=== PATIENT | female | born 1965 | race Caucasian/White ===

== ENCOUNTER 2017-01-07 07:16 | Day surgery (SDC) | payer OTHER ==
[2016-12-16 15:53] VITALS: BMI 35.5
--- NOTE | 2017-01-06 20:25 | PREOPHP ---
DATE OF ADMISSION: 01/07/2017 HISTORY OF PRESENT ILLNESS: A 51-year-old patient who is going to be admitted for diagnostic arthro scopy, right knee, partial meniscectomy, total synovectomy, plica band release, and application of J ones dressing. This patient has been experiencing right knee pain for quite a while. Conservative treatment result ed in limited benefit to the patient and the patient has requested surgical intervention. PAST MEDICAL HISTORY: Asthma, COPD, high blood pressure. SOCIAL HISTORY: Nonsmoker, nondrinker. FAMILY HISTORY: Positive for cancer and aneurysm. PAST SURGICAL HISTORY: Knee surgery. ALLERGIES: PATIENT GIVES A HISTORY OF ALLERGY TO: 1. TORADOL. 2. LATEX. 3. MORPHINE. 4. TRAMADOL. MEDICATIONS: 1. Gabapentin. 2. Fentanyl patch. 3. Dilaudid. 4. Keppra. 5. Metoprolol. 6. Prilosec. 7. Cymbalta. 8. Abilify. 9. Restoril. 10. 11. Clonidine. 12. Sulindac. PHYSICAL EXAMINATION: SKIN: Within normal limits. EARS, NOSE, THROAT: PERRLA. HEAD AND NECK: Normocephalic. Trachea midline. Bilateral symmetrical carotid pulses. No mass, no bruit, no lymphadenopathy. CARDIOVASCULAR: Normal sinus rhythm. S1, S2 normal. No murmur. No JVD. No peripheral edema. LUNGS: Clear. ABDOMEN: Protuberant. No organomegaly. No mass. Bowel sounds present. GENITOURINARY: Not done, not pertinent to this admission. RECTAL: Not done, not pertinent to this admission. MUSCULOSKELETAL: Height of 5 feet 2 inches, weighing 196 pounds. Head and neck unremarkable. Uppe r extremities to be normal with normal neurovascular examination. Spine range of motion is about 80 % with tenderness over the facet joints. There is slight tenderness over the greater trochanter iliotibial band. Both knees show range of mo tion 0 to 100 degrees. Marked tenderness over the medial joint line, patellofemoral and tibiofemora l joint line. Pawan test and Apley compression test could not be assessed. Left leg is hyperref lexive. Lower extremity there is slight tenderness over the posterior tibial and peroneal tendons a nd both ankles. MRI of the right knee indicates chondral loss, posteromedial femoral condyle, subchondral marrow adrian ma, no fascial thickness chondral loss. 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 Frayin g of the trochlea, small 3 mm focus of chondral diminution, lateral tibial plateau, mild mucoid dege neration of the posterior cruciate ligament, small cyst, small focal synovitis, small joint ef fusion, mild synovitis. DIAGNOSES: Right knee internal derangement, right knee plica syndrome, right knee synovitis, possib le torn meniscus. TREATMENT PLAN: Alternatives, risks and benefits discussed. The patient understands possibility of complications such as infection, bleeding, nerve damage, vascular damage, possibility of deep venou s thrombosis, pulmonary embolism, hypersensitivity to medication and even . Cullen result may n ot be obtained depending on nature of findings and also unknown factors. Formal H and P is supposed to have been done by primary care physician. Dictated By: PADMINI BRYANT/VERÓNICA Conf#: [id number] DID#: [id number]
[2017-01-07] VITALS (14 sets, daily range): BP systolic 112–177; BP diastolic 62–91; PULSE 60–113; RESP 13–29; Ht 157.5 cm; Wt 94.4 kg
[~2017-01-07] VITALS: Ht 157.5 cm; Wt 94.4 kg
[~2017-01-07 07:16] MED LIST: CEFAZOLIN 2 GM/50 ML (PMX) 50 ML IVPB ONE; SEVOFLURANE 15 MIN ONE
[2017-01-07] MEDS ORDERED: PROPOFOL 20 ML ONE ×2 (08:21→09:57)
[2017-01-07] MEDS ORDERED: FENTAnyl 50 MCG/ML VIAL ONE ×2 (08:21→11:01)
[2017-01-07] MEDS ORDERED: LIDOCAINE 100 MG SYRINGE ONE (08:21)
[2017-01-07] MEDS ORDERED: MIDAZOLAM 1 MG/ML 2 ML INJ ONE (08:21)
[2017-01-07] MEDS ORDERED: DEXAMETHASONE 4 MG/ML 1 ML INJ ONE (08:24)
[2017-01-07] MEDS ORDERED: ONDANSETRON 4 MG INJ ONE (08:24)
[2017-01-07] MEDS ORDERED: CLON-379 PO (08:39)
[2017-01-07] MEDS ORDERED: MONT10TA21 PO (08:39)
[2017-01-07] MEDS ORDERED: ALBU18HF INHALATION (08:39)
[2017-01-07] MEDS ORDERED: ARIP15TA2 PO (08:39)
[2017-01-07] MEDS ORDERED: DULO60CA6 PO (08:39)
[2017-01-07] MEDS ORDERED: ADV25050 INHALATION (08:39)
[2017-01-07] MEDS ORDERED: LEVE500S9 PO (08:39)
[2017-01-07] MEDS ORDERED: METO-448 PO (08:39)
[2017-01-07] MEDS ORDERED: GABA400C14 PO (08:39)
[2017-01-07] MEDS ORDERED: BUDE6.9H INHALATION (08:39)
[2017-01-07] MEDS ORDERED: OMEP40CA6 PO (08:39)
[2017-01-07] MEDS ORDERED: EPINEPHrine 1 MG/ML 30 ML INJ ONE (08:42)
[2017-01-07] MEDS ORDERED: SODIUM CL BACTERIOSTATIC 30 ML INJ ONE (08:42)
[2017-01-07] MEDS ORDERED: morphine SULFATE/PF (10 MG/10 ML) INJ ONE (08:42)
[2017-01-07 09:02] LABS: ADD SCAN DIFF NO
[2017-01-07 09:05] LABS: BASOPHILS % 0.5 % (0.0-2.0); EOSINOPHILS # 0.3 10^3/ul (0.0-0.5); EOSINOPHILS % 4.1 % (0.0-7.0); HEMATOCRIT 35.3 % (37.0-47.0); HEMOGLOBIN 10.8 g/dl (12.0-16.0); LYMPHOCYTES # 3.1 10^3/ul (0.8-2.9); LYMPHOCYTES % 50.2 % (15.0-51.0); MEAN CORPUSCULAR HEMOGLOBIN 24.7 pg (29.0-33.0); MEAN CORPUSCULAR HGB CONC 30.6 g/dl (32.0-37.0); MEAN CORPUSCULAR VOLUME 80.6 fl (82.0-101.0); MEAN PLATELET VOLUME 9.7 fl (7.4-10.4); MONOCYTE # 0.6 10^3/ul (0.3-0.9); NEUTROPHIL # 2.2 10^3/ul (1.6-7.5); PLATELET COUNT 375 10^3/UL (140-415); RED BLOOD COUNT 4.38 10^6/ul (4.20-5.40); RED CELL DISTRIBUTION WIDTH 17.7 % (11.5-14.5); WHITE BLOOD COUNT 6.1 10^3/ul (4.8-10.8)
[2017-01-07 09:08] LABS: INR 0.92; PARTIAL THROMBOPLASTIN TIME 29.5 Sec (25.0-35.0); PROTIME 12.4 Sec (12.2-14.2)
[2017-01-07 09:13] LABS: POTASSIUM 4.2 mmol/L (3.5-5.1)
[2017-01-07 09:15] LABS: ALBUMIN/GLOBULIN RATIO 1.42; BILIRUBIN,INDIRECT 0.1 mg/dl (0-1.1); BILIRUBIN,TOTAL 0.1 mg/dl (0.2-1.3); TOTAL PROTEIN 6.8 g/dl (6.1-8.1)
[2017-01-07] MEDS ORDERED: CEFAZOLIN 1 GM INJ ONE (09:21)
[2017-01-07 09:35] LABS: CALCIUM 9.8 mg/dl (8.4-10.2); CREATININE 0.74 mg/dl (0.44-1.00)
[2017-01-07] MEDS ORDERED: HYDROmorphONE 2 MG/ML SYG ONE (09:40)
[2017-01-07] MEDS ORDERED: LABETALOL HCL 20MG INJ ONE (09:42)
[2017-01-07] MEDS ORDERED: METHYLPREDNISOLONE ACET 80 MG/ML 1 ML ONE (10:06)
[2017-01-07] MEDS ORDERED: HYDROmorphONE (0.2 MG/ML) 10ML SYG IV ONE (10:33)
[2017-01-07] MEDS: HYDROmorphONE (0.2 MG/ML) 10ML SYG IV PRN ×5 (10:35→11:08)
[2017-01-07] MEDS ORDERED: HYDROmorphONE (0.2 MG/ML) 10ML SYG IV PRN ×2 (11:00)
[2017-01-07] MEDS ORDERED: OXYCODONE/ACETAMINOPHEN (5/325) TAB PO PRN (11:00)
[2017-01-07] MEDS ORDERED: ONDANSETRON 4 MG INJ IV PRN (11:00)
[2017-01-07] MEDS ORDERED: METOCLOPRAMIDE 10 MG INJ IV PRN (11:00)
[2017-01-07] MEDS ORDERED: GABAPENTIN 300 MG CAP PO ONE (11:30)
[2017-01-07] MEDS ORDERED: FENTAnyl 50 MCG/ML VIAL IV PRN (11:30)
--- NOTE | 2017-01-07 11:41 | OPR ---
DATE OF OPERATION: PREOPERATIVE DIAGNOSIS: Chronic synovitis, loose body torn meniscus, right knee. POSTOPERATIVE DIAGNOSIS: Chronic synovitis, loose body torn meniscus, right knee. OPERATION PERFORMED: Diagnostic arthroscopy, total synovectomy, partial lateral meniscectomy, and r emoval of loose body, application of Keith dressing. ANESTHESIA: General. BLEEDING: Minimal. COMPLICATIONS: None. OPERATIVE PROCEDURE: The patient was transferred to the operating room and placed on the table in s upine position. General anesthesia was induced. 2 grams of Ancef was given IV. The right knee was shaved, prepped and draped in the routine fashion and landmarks were marked. Through regular 2 ant erior portals patellar tendon, 1 medial and 1 lateral, operative arthroscopy was commenced. Examina tion of suprapatellar pouch indicated scar tissue and chronic synovitis, suprapatellar pouch. Suresh la shows grade III chondromalacia, especially in the central portion, grade II and III in the remainder of the patella was engaging at 40 degrees in trochlear groove and there was chondral delam ination happening the patella, central area and trochlear groove. Medial lateral gutter was clear o f loose body. Going into medial compartment, there was grade III chondromalacia and meniscus was in tact, but it was thinned out, especially posteriorly with a degenerative tear centrally, but there w as massive chronic synovitis anteriorly in the periphery of the meniscus. Using Arthrocare Bovie with coagulation, total synovectomy was performed and intercondylar notch rashawn wed chronic synovitis which was then coagulated. ACL was intact and going to lateral compartment, t here was also a massive synovitis anteriorly and the meniscus periphery was intact. Articular surfa ce shows grade I to II chondromalacia. There was a small flap tear at the root of the lateral menis cus, which was taken care of by Arthrocare Bovie. Chronic synovitis anteriorly was also coagulated meticulously and all debris was removed. There was a loose body into the intercondylar notch, which was measuring about 3 to 4 mm in size, which was removed. Going to suprapatellar pouch and subpate llar area, delamination of the articular surface was removed. Total synovectomy was done in the sup rapatellar pouch. All debris was removed. Portal was closed with Mastisol and Steri-Strips. 5 mg of Duramorph mixed with 10 mL of injectable saline and 40 mg of Depo-Medrol was mixed and injected i nto the knee. Sterile Keith dressing was applied. Procedure was terminated. General anesthesia wa s stopped. Patient was transferred to [facility] and subsequently to recovery room in good and stable c ondition. Dictated By: PADMINI BRYANT/VERÓNICA Conf#: [id number] DID#: [id number]
== END 2017-01-07 12:15 | disposition home or self-care (01) ==
LOC: SDS 07:16
PROVIDERS: ATTEND Internal Medicine Endocrinology, Diabetes & Metabolism
DX: M23.200 Derangement of unspecified lateral meniscus due to old tear or injury, right knee (principal); M23.41 Loose body in knee, right knee; M65.861 Other synovitis and tenosynovitis, right lower leg; I10 Essential (primary) hypertension; J45.909 Unspecified asthma, uncomplicated; E66.01 Morbid (severe) obesity due to excess calories; Z68.38 Body mass index [BMI] 38.0-38.9, adult
CPT/HCPCS: 29874; 29881; 80053; 84703; 85025; 85610; 85730; C1713; J0171; J0690; J1040; J1100; J1170; J2001; J2250; J2274; J2405; J3010; Z7512; Z7610